=== PATIENT | female | born 1955 | race Hispanic/Latino ===

== ENCOUNTER 2023-10-23 13:33 | Emergency (ER) | payer OTHER ==
[~2023-10-23] VITALS: Ht 165.1 cm; Wt 64.9 kg
[2023-10-23 13:47] VITALS: TEMP 98.4
[2023-10-23] MEDS: IBUPROFEN 600 MG TABLET PO ONE (15:24)
[2023-10-23] MEDS: acetaMINOPHEN 500 MG TABLET PO ONE (15:24)
[2023-10-23] MEDS: CYCLOBENZAPRINE HCL 10 MG TABLET PO ONE (15:24)
[2023-10-23 15:48] LABS: ADD UA MICROSCOPIC YES; APPEARANCE,URINE CLEAR (CLEAR); BILIRUBIN,URINE NEGATIVE (NEGATIVE); COLOR,URINE LIGHT-YELLOW (YELLOW); GLUCOSE, URINE (UA) >=1000 mg/dL (NEGATIVE); KETONES,URINE 10 mg/dL (NEGATIVE); LEUKOCYTE ESTERASE ,URINE NEGATIVE Leu/uL (NEGATIVE); NITRATE,URINE NEGATIVE (NEGATIVE); OCCULT BLOOD,URINE NEGATIVE (NEGATIVE); PH,URINE 5.5 (5.0-8.0); PROTEIN,URINE NEGATIVE (NEGATIVE); UROBILINOGEN,URINE 0.2 mg/dL (0.2-1.0)
[2023-10-23 15:50] LABS: SQUAMOUS EPITHELIAL CELL,UR RARE /HPF (0-2)
[2023-10-23] MEDS ORDERED: CYCL10TA16 PO (16:35)
[2023-10-23] MEDS ORDERED: IBUP-2070 PO (16:35)
[2023-10-23 16:57] VITALS: BP 120/68; PULSE 68; RESP 16; O2SAT 97
== END 2023-10-23 17:09 | disposition home or self-care (01) ==
LOC: EDH 13:33
DX: Z04.1 Encounter for examination and observation following transport accident (principal); E11.9 Type 2 diabetes mellitus without complications; E78.00 Pure hypercholesterolemia, unspecified; I10 Essential (primary) hypertension; Z90.49 Acquired absence of other specified parts of digestive tract; Z90.710 Acquired absence of both cervix and uterus; V89.2XXA Person injured in unspecified motor-vehicle accident, traffic, initial encounter; Y93.I9 Activity, other involving external motion; Y92.89 Other specified places as the place of occurrence of the external cause; Y99.8 Other external cause status
CPT/HCPCS: 70450; 71250; 72125; 72131; 74176; 81001; 93005